=== PATIENT | male | born 1945 | race Caucasian/White ===

== ENCOUNTER 2016-10-18 19:59 | Inpatient (IN) | payer OTHER ==
[~2016-10-18] VITALS: Ht 172.7 cm; Wt 81.0 kg
[2016-10-18 20:19] LABS: HEMATOCRIT 40.7 % (38.0-50.0); MCH 28.6 PG (29.0-34.0); MCHC 33.7 G/DL (30.0-36.0); MEAN PLAT.VOLUME 10.7 uM^3 (9.0-12.4); PLATELET COUNT 187 K/uL (156-360); RBC DIS.WIDTH-SD 42.8 % (39-53); RED BLOOD COUNT 4.79 M/uL (4.00-5.50); WHITE BLOOD COUNT 6.5 K/uL (4.1-10.2)
[2016-10-18 21:08] LABS: CHLORIDE 107 mEq/L (99-109); POTASSIUM 4.3 mEq/L (3.7-5.4); SODIUM 143 mEq/L (136-147)
[2016-10-18 21:10] LABS: GLUCOSE 121 mg/dL (70-99)
[2016-10-18 21:12] LABS: ANION GAP 12 MEQ/L (2-14)
[2016-10-18 21:14] LABS: GFR ESTIMATE (CALCULATED) 53 mL/min/
[2016-10-18 21:15] LABS: UREA NITROGEN (BUN) 15 mg/dL (9-23)
[2016-10-18 21:22] LABS: TROP-I INTERPRETATION NEGATIVE; TROPONIN-I < 0.01 ng/mL (0.0-0.30)
[2016-10-18] MEDS ORDERED: ZESTRIL40 MG PO (21:42)
[2016-10-18] MEDS ORDERED: CALAN120 MG PO (21:43)
[2016-10-18] MEDS ORDERED: MEVACOR20 MG PO (21:43)
[2016-10-18] MEDS ORDERED: ZANTAC150 MG PO (21:43)
[2016-10-18] MEDS ORDERED: TYLENOL EXTRA500 MG PO (21:44)
[2016-10-19 00:25] VITALS: BP 140/73
[2016-10-19 05:26] VITALS: BP 127/59
[2016-10-19 07:04] LABS: TROP-I INTERPRETATION NEGATIVE; TROPONIN-I 0.01 ng/mL (0.0-0.30)
[2016-10-19 08:10] VITALS: BP 157/81
[2016-10-19 08:24] LABS: HEMATOCRIT 37.3 % (38.0-50.0); MCH 29.5 PG (29.0-34.0); MCHC 33.5 G/DL (30.0-36.0); PLATELET COUNT 175 K/uL (156-360); RBC DIS.WIDTH-CV 14.3 % (11.8-14.6); RBC DIS.WIDTH-SD 45.6 % (39-53); RED BLOOD COUNT 4.24 M/uL (4.00-5.50); WHITE BLOOD COUNT 4.8 K/uL (4.1-10.2)
[2016-10-19 08:36] LABS: ANION GAP 9 MEQ/L (2-14); CHLORIDE 110 MEQ/L (99-109); GFR ESTIMATE (CALCULATED) > 59 mL/min/; GLUCOSE 105 mg/dL (70-99); POTASSIUM 3.8 MEQ/L (3.7-5.4); SAMPLE HEMOLYSIS CHECK 0; SAMPLE ICTERIC CHECK 0; SAMPLE LIPEMIA CHECK 0; SODIUM 140 MEQ/L (136-147); UREA NITROGEN (BUN) 17 mg/dL (9-23)
[2016-10-19 12:10] VITALS: BP 117/56
[2016-10-19] MEDS ORDERED: ELIQUIS5 MG PO (12:24)
[2016-10-19 13:08] LABS: INTER. NORMALIZED RATIO 1.1; PROTHROMBIN TIME 11.4 (9.2-11.2); PTT 39.7 (25-32)
[2016-10-19 13:24] LABS: TROP-I INTERPRETATION NEGATIVE; TROPONIN-I < 0.01 ng/mL (0.0-0.30)
[2016-10-19 16:22] VITALS: BP 144/75
== END 2016-10-19 19:15 | disposition home or self-care (01) | DRG 310 ==
LOC: EME 19:59 → 4EAST 22:57 → EDOF 22:57 → 4EAST 10-19 00:05
PROVIDERS: Hospitalist; Internal Medicine Cardiovascular Disease; Physician Assistant
DX: I48.0 Paroxysmal atrial fibrillation (principal); I10 Essential (primary) hypertension; E78.5 Hyperlipidemia, unspecified
CPT/HCPCS: 71020; 80048; 84443; 84484; 85027; 85610; 85730; 93005; 99281; 99285; J1650; J7030

== ENCOUNTER 2017-12-24 19:22 | Emergency (ER) | payer OTHER ==
[~2017-12-24] VITALS: Ht 177.8 cm; Wt 83.6 kg
[~2017-12-24 19:22] MED LIST: CALAN120 MG PO; ELIQUIS5 MG PO; MEVACOR20 MG PO; TYLENOL EXTRA500 MG PO; ZANTAC150 MG PO; ZESTRIL40 MG PO
[2017-12-24 20:16] LABS: HEMATOCRIT 41.5 % (38.0-50.0); HEMOGLOBIN 14.1 G/DL (12.5-16.6); MCH 28.8 PG (29.0-34.0); MCV 84.7 FL (86-99); PLATELET COUNT 173 K/uL (156-360); RBC DIS.WIDTH-CV 13.9 % (11.8-14.6); WHITE BLOOD COUNT 6.3 K/uL (4.1-10.2)
[2017-12-24 20:25] LABS: INTER. NORMALIZED RATIO 2.4
[2017-12-24 20:27] LABS: PTT 47.5 SEC (25-37)
[2017-12-24 20:35] LABS: ALBUMIN 4.3 g/dL (3.2-4.8); CHLORIDE 107 mEq/L (99-109); POTASSIUM 3.9 mEq/L (3.7-5.4); SODIUM 142 mEq/L (136-147)
[2017-12-24 20:37] LABS: GLUCOSE 124 mg/dL (70-99)
[2017-12-24 20:38] LABS: TROP-I INTERPRETATION NEGATIVE; TROPONIN-I 0.01 ng/mL (0.0-0.30)
[2017-12-24 20:39] LABS: TOTAL BILIRUBIN 0.6 mg/dL (0.0-1.0)
[2017-12-24 20:41] LABS: ALKALINE PHOSPHATASE 73 IU/L (3-129); CREATININE 1.5 mg/dL (0.6-1.3); GFR ESTIMATE (CALCULATED) 49 mL/min/ (58.99-99999)
[2017-12-24 20:42] LABS: UREA NITROGEN (BUN) 18 mg/dL (9-23)
[2017-12-24 20:43] LABS: AST (GOT) 42 IU/L (2-34)
[2017-12-24 20:44] LABS: ALT (GPT) 47 IU/L (3-49)
[2017-12-24 21:59] VITALS: BP 131/85
== END 2017-12-24 22:01 | disposition home or self-care (01) ==
LOC: EME 19:22
PROVIDERS: Emergency Medicine Emergency Medical Services
DX: I48.91 Unspecified atrial fibrillation (principal); R07.9 Chest pain, unspecified; R06.02 Shortness of breath; R42 Dizziness and giddiness; R53.1 Weakness; Z79.01 Long term (current) use of anticoagulants; E78.5 Hyperlipidemia, unspecified; I10 Essential (primary) hypertension; K21.9 Gastro-esophageal reflux disease without esophagitis
CPT/HCPCS: 71045; 80053; 84484; 85027; 85610; 85730; 93005; 99281; 99284

== ENCOUNTER 2017-12-28 20:54 | Emergency (ER) | payer OTHER ==
[~2017-12-28] VITALS: Ht 177.8 cm; Wt 82.2 kg
[2017-12-28] MEDS ORDERED: METOPROLOL SUCC50 MG PO (21:28)
[2017-12-28] MEDS ORDERED: XARELTO20 MG PO (21:28)
[2017-12-28 22:45] LABS: HEMATOCRIT 39.1 % (38.0-50.0); HEMOGLOBIN 13.3 G/DL (12.5-16.6); MCH 28.9 PG (29.0-34.0); PLATELET COUNT 156 K/uL (156-360); RBC DIS.WIDTH-CV 13.8 % (11.8-14.6); RBC DIS.WIDTH-SD 42.7 % (39-53); WHITE BLOOD COUNT 4.8 K/uL (4.1-10.2)
[2017-12-28 22:54] LABS: CHLORIDE 109 mEq/L (99-109); POTASSIUM 4.1 mEq/L (3.7-5.4); SODIUM 137 mEq/L (136-147)
[2017-12-28 22:56] LABS: GLUCOSE 95 mg/dL (70-99)
[2017-12-28 22:59] LABS: CREATININE 1.3 mg/dL (0.6-1.3); GFR ESTIMATE (CALCULATED) 58 mL/min/ (58.99-99999)
[2017-12-28 23:00] LABS: UREA NITROGEN (BUN) 19 mg/dL (9-23)
[2017-12-28 23:06] LABS: TROP-I INTERPRETATION NEGATIVE; TROPONIN-I < 0.01 ng/mL (0.0-0.30)
[2017-12-29 00:04] VITALS: BP 165/83
== END 2017-12-29 00:05 | disposition home or self-care (01) ==
LOC: EME 20:54
PROVIDERS: Emergency Medicine
DX: I10 Essential (primary) hypertension (principal); R00.1 Bradycardia, unspecified; E78.5 Hyperlipidemia, unspecified; K21.9 Gastro-esophageal reflux disease without esophagitis; Z87.442 Personal history of urinary calculi
CPT/HCPCS: 80048; 83605; 84484; 85027; 93005; 99281; 99284

== ENCOUNTER 2018-01-21 17:20 | Observation (INO) | payer OTHER ==
[~2018-01-21] VITALS: Ht 180.3 cm; Wt 79.8 kg
[~2018-01-21 17:20] MED LIST changes: +METOPROLOL SUCC50 MG PO; +XARELTO20 MG PO
[2018-01-21 18:14] LABS: HEMATOCRIT 41.3 % (38.0-50.0); HEMOGLOBIN 14.3 G/DL (12.5-16.6); MCH 29.3 PG (29.0-34.0); MCHC 34.6 G/DL (30.0-36.0); MCV 84.6 FL (86-99); RBC DIS.WIDTH-CV 13.7 % (11.8-14.6); RBC DIS.WIDTH-SD 41.8 % (39-53); RED BLOOD COUNT 4.88 M/uL (4.00-5.50); WHITE BLOOD COUNT 7.1 K/uL (4.1-10.2)
[2018-01-21 18:19] LABS: PLATELET COUNT 219 K/uL (156-360)
[2018-01-21 18:24] LABS: CHLORIDE 104 mEq/L (99-109); POTASSIUM 3.5 mEq/L (3.7-5.4); SODIUM 137 mEq/L (136-147)
[2018-01-21 18:25] LABS: GLUCOSE 106 mg/dL (70-99)
[2018-01-21 18:29] LABS: CREATININE 1.3 mg/dL (0.6-1.3); GFR ESTIMATE (CALCULATED) 58 mL/min/ (58.99-99999)
[2018-01-21 18:30] LABS: UREA NITROGEN (BUN) 18 mg/dL (9-23)
[2018-01-21 18:36] LABS: TROP-I INTERPRETATION NEGATIVE; TROPONIN-I < 0.01 ng/mL (0.0-0.30)
[2018-01-21] MEDS ORDERED: XYZAL5 MG PO (19:35)
[2018-01-21] MEDS ORDERED: VENTOLIN HFA18 GM IH (19:35)
[2018-01-21 22:31] VITALS: BP 184/91
[2018-01-21 23:37] VITALS: BP 135/89
[2018-01-21 23:45] LABS: TROP-I INTERPRETATION NEGATIVE; TROPONIN-I < 0.01 ng/mL (0.0-0.30)
[2018-01-22 04:03] VITALS: BP 111/60
[2018-01-22 05:38] LABS: HEMATOCRIT 37.3 % (38.0-50.0); MCH 28.3 PG (29.0-34.0); MCV 85.7 FL (86-99); PLATELET COUNT 192 K/uL (156-360); RBC DIS.WIDTH-CV 13.7 % (11.8-14.6); RBC DIS.WIDTH-SD 42.9 % (39-53); RED BLOOD COUNT 4.35 M/uL (4.00-5.50); WHITE BLOOD COUNT 6.2 K/uL (4.1-10.2)
[2018-01-22 05:39] LABS: HEMOGLOBIN 12.3 G/DL (12.5-16.6)
[2018-01-22 05:44] LABS: TROP-I INTERPRETATION NEGATIVE; TROPONIN-I < 0.01 ng/mL (0.0-0.30)
[2018-01-22 06:14] LABS: ALBUMIN 3.5 G/DL (3.2-4.8); ALKALINE PHOSPHATASE 55 IU/L (3-129); ALT (GPT) 15 IU/L (3-49); AST (GOT) 13 IU/L (2-34); CHLORIDE 108 MEQ/L (99-109); CREATININE 1.2 MG/DL (0.6-1.3); GFR ESTIMATE (CALCULATED) > 59 mL/min/ (58.99-99999); GLUCOSE 97 mg/dL (70-99); POTASSIUM 4.1 MEQ/L (3.7-5.4); SODIUM 140 MEQ/L (136-147); TOTAL BILIRUBIN 0.4 MG/DL (0.0-1.0); TOTAL PROTEIN 6.7 G/DL (6.4-8.3); UREA NITROGEN (BUN) 19 mg/dL (9-23)
[2018-01-22 08:00] VITALS: BP 120/57; BP 123/67; BP 124/70
[2018-01-22 10:48] VITALS: BP 108/54
== END 2018-01-22 12:40 | disposition home or self-care (01) ==
LOC: EME 17:20 → EDOF 21:06 → 4SOUTH 21:06 → EDOF 21:06 → ENRESERV 21:07 → 4SOUTH 22:23
PROVIDERS: Emergency Medicine; Internal Medicine
DX: R07.9 Chest pain, unspecified (principal); I48.0 Paroxysmal atrial fibrillation; I10 Essential (primary) hypertension; E87.6 Hypokalemia; R06.2 Wheezing; Z79.01 Long term (current) use of anticoagulants; E78.5 Hyperlipidemia, unspecified; Z87.442 Personal history of urinary calculi
CPT/HCPCS: 71046; 71250; 80048; 80053; 84484; 85027; 93005; 99202; 99281; 99285; G0378; J7030

== ENCOUNTER 2018-03-13 20:40 | Emergency (ER) | payer OTHER ==
[~2018-03-13] VITALS: Ht 180.3 cm; Wt 82.8 kg
[~2018-03-13 20:40] MED LIST changes: +VENTOLIN HFA18 GM IH; +XYZAL5 MG PO
[2018-03-13 21:01] LABS: HEMATOCRIT 40.7 % (38.0-50.0); MCH 29.4 PG (29.0-34.0); MCHC 34.4 G/DL (30.0-36.0); MCV 85.3 FL (86-99); PLATELET COUNT 177 K/uL (156-360); RBC DIS.WIDTH-CV 14.5 % (11.8-14.6); RBC DIS.WIDTH-SD 44.8 % (39-53); RED BLOOD COUNT 4.77 M/uL (4.00-5.50); WHITE BLOOD COUNT 6.7 K/uL (4.1-10.2)
[2018-03-13 21:13] LABS: CHLORIDE 104 mEq/L (99-109); POTASSIUM 3.6 mEq/L (3.7-5.4); SODIUM 140 mEq/L (136-147)
[2018-03-13 21:14] LABS: GLUCOSE 162 mg/dL (70-99)
[2018-03-13 21:18] LABS: CREATININE 1.5 mg/dL (0.6-1.3); GFR ESTIMATE (CALCULATED) 49 mL/min/ (58.99-99999)
[2018-03-13 21:19] LABS: UREA NITROGEN (BUN) 20 mg/dL (9-23)
[2018-03-13 21:24] LABS: TROP-I INTERPRETATION NEGATIVE; TROPONIN-I < 0.01 ng/mL (0.0-0.30)
[2018-03-13 22:50] VITALS: BP 109/79
== END 2018-03-13 22:51 | disposition home or self-care (01) ==
LOC: EME 20:40
DX: I48.91 Unspecified atrial fibrillation (principal); E87.6 Hypokalemia; N28.9 Disorder of kidney and ureter, unspecified; Z79.01 Long term (current) use of anticoagulants; E78.5 Hyperlipidemia, unspecified; I10 Essential (primary) hypertension; K21.9 Gastro-esophageal reflux disease without esophagitis
CPT/HCPCS: 71046; 80048; 84484; 85027; 93005; 99281; 99284